=== PATIENT | female | born 1945 | race Caucasian/White ===

== ENCOUNTER → 2018-10-14 | Day surgery (SDC) | payer OTHER ==
--- NOTE | 2018-10-14 12:37 | RAD REPORT ---
EXAM DESCRIPTION: US - Breast Core BX w/US Guidance - 10/14/2018 11:45 am CLINICAL HISTORY: ICD N63.20 COMPARISON: October 09 2018 ultrasound TECHNIQUE: The risks, benefits alternatives to the procedure were explained to the patient and infor med consent obtained. Skin and subcutaneous tissues anesthetized with lidocaine. Under sonographic guidance, three 14 gauge vacuum assisted core biopsies of the mass within the outer lower left breast obtained. 2 centimeter specimens taken. Tissue given to pathology. Subsequently a localizing clip was placed into the mass. Patient experienced no immediate complication IMPRESSION: Vacuum assisted core biopsies of the left breast mass
== END ==
LOC: DS 10:29
PROVIDERS: ATTEND Internal Medicine
DX: C50.912 Malignant neoplasm of unspecified site of left female breast (principal)
CPT/HCPCS: 19083; 88305

== ENCOUNTER 2018-12-28 08:48 | Inpatient (IN) | payer OTHER ==
--- OUTSIDE RECORDS SUMMARY | 2018-12-28 08:51 | XMS REPORT ---
:1945 [facility] [address] [place] [address] Care Team Providers Name Role Phone Unavailable Unavailable Unavailable Problems This patient has no known problems. Allergies, Adverse Reactions, Alerts This patient has no known allergies or adverse reactions. Medications This patient has no known medications.
[2018-12-28] MEDS ORDERED: ONDANSETRON 4 MG/2 ML VIAL ONE ×2 (09:21→10:01)
[2018-12-28] MEDS ORDERED: MORPHINE 4 MG/ML SYR ONE ×2 (09:21→10:01)
[2018-12-28] MEDS ORDERED: NA CHLORIDE 0.9% 1,000 ML ONE (09:21)
[2018-12-28] MEDS ORDERED: FAMOTIDINE 20 MG/2 ML VIAL IV ONE (09:22)
[2018-12-28 09:36] LABS: Absolute Lymphocytes (CBC) 0.8 K/uL (0.7-4.9); Basophils % 0.3 % (0-1.3); Hematocrit 36.8 % (36.0-45.0); Lymphocytes % 4.5 % (15.3-44.8); MPV 8.1 fL (7.6-11.3); RBC Red Blood Cell Count 4.32 M/uL (3.86-4.86)
[2018-12-28] MEDS ORDERED: METRONIDAZOLE 500mg IVPB 500 MG/100 ML BAG IV ONE (09:56)
[2018-12-28] MEDS ORDERED: CIPROFLOXACIN 400mg IV 400 MG/200 ML BAG IV ONE (09:56)
[2018-12-28 09:58] LABS: ALT/SGPT 22 U/L (12-78); AST/SGOT 12 U/L (15-37); Albumin 3.2 g/dL (3.4-5.0); Alkaline Phosphatase 106 U/L (45-117); BUN Blood Urea Nitrogen 20 mg/dL (7-18); Bicarbonate 25 mmol/L (21-32); Bilirubin Direct 0.1 mg/dL (0-0.2); Bilirubin Total 0.5 mg/dL (0.2-1.0); Glucose Level 102 mg/dL (74-106); Lipase 58 U/L (73-393); Magnesium 1.8 mg/dL (1.8-2.4); NT PRO-BNP 589 pg/mL (<125); Potassium 3.3 mmol/L (3.5-5.1); Protein, Total 6.7 g/dL (6.4-8.2); Sodium Level 143 mmol/L (136-145); Troponin (Emerg Dept Use Only) < 0.02 ng/mL (0.0-0.045)
[2018-12-28] MEDS ORDERED: NS KCL 20MEQ 1,000 ML IV ONE (10:11)
[2018-12-28 10:16] LABS: Blood Morphology Comment NOT SEEN (NOT SEEN); Platelet Estimate ADEQ
[2018-12-28] MEDS ORDERED: PROMETHAZINE 25 MG/ML VIAL ONE (10:22)
--- NOTE | 2018-12-28 10:30 | RAD REPORT ---
EXAM DESCRIPTION: RAD - Chest Single View - 12/28/2018 9:39 am CLINICAL HISTORY: Abdominal pain, abdominal distention, history of breast cancer COMPARISON: None. TECHNIQUE: AP portable chest image was obtained 0935 hours . FINDINGS: No peripheral mass or consolidation. No failure or volume overload. Moderately large right paratracheal mass density is present aortic arch level. This is relatively dense and appears to cont ain extensive calcification. This would favor a benign, chronic etiology ; however, no comparison is available and the patient has a breast cancer history. Heart and vasculature are normal. No measurable pleural effusion and no pneumothorax. No acute bony abnormality seen. No acute aortic findings suspected. IMPRESSION: No acute infiltrate, failure or other acute cardiopulmonary finding. Upper right paratracheal mass density appears to be densely calcified which would favor a benign proc ess. However, given the breast cancer history, follow-up comparison with outside imaging would be rec ommended.
[2018-12-28 10:52] LABS: Urine Blood TRACE (NEG); Urine Glucose NEGATIVE (NEG); Urine Protein NEGATIVE (NEG)
--- NOTE | 2018-12-28 11:21 | RAD REPORT ---
EXAM DESCRIPTION: CT - Abdomen Pelvis W Contrast - 12/28/2018 11:06 am CLINICAL HISTORY: ABD PAIN COMPARISON: None. TECHNIQUE: Biphasic, helical CT imaging of the abdomen and pelvis was performed following 100 ml non -ionic IV contrast. Oral contrast was given. All CT scans are performed using dose optimization technique as appropriate and may include automated exposure control or mA/KV adjustment according to patient size. FINDINGS: No suspicious findings in the lung bases. The liver, spleen, and pancreas show no suspicious findings. Gallbladder is absent. Intrahepatic and extrahepatic biliary tree dilatation are present. No duct stone or mass seen. In the absence of any l ab or clinical findings of biliary obstruction this is probably normal post cholecystectomy dilatatio n. Symmetric renal function is seen with no hydronephrosis or suspicious renal mass. No pyelonephritis o r acute parenchymal process. Urinary bladder is only partially filled. No bladder stone. No adrenal a bnormalities. Small hiatal hernia is present and reflux is evident. A primary gastric wall mass or gastric wall thi ckening not suspected. No gastric outlet obstruction. Small bowel loops are not dilated. Mild left-si ded diverticulosis is present without left-sided diverticulitis. Moderate stool volume in the descend ing and sigmoid portions of the colon. Acute appendicitis is not suspected. Blackwell of the cecum, ascen ding colon and transverse colon are mildly prominent suspicious for a nonspecific colitis. No one foc al colon mass identifiable. Uterus is surgically absent. The patient has a 12 x 10 centimeter homogeneous cystic mass believed to be right ovarian in origin. No mural nodule, septation or fat component. There is a 3.3 x 3.3 centim eter round left ovarian cystic mass. No free air, free fluid or inflammatory stranding. No bulky lymphadenopathy or hernia. Disc and bony degenerative changes are present prominent in the lower lumbar spine. Vascular calcific ations are present. IMPRESSION: Mild right-sided colitis changes are present believed to be the primary acute process. Patient has a 12 x 10 centimeter homogeneous right adnexal cystic mass and and 3 centimeter left ovar hiro cystic mass both favored to be cyst adenomas. No CT characteristics to elevate probability of a m ore aggressive ovarian process. Biliary tree dilatation believed to be physiologic in a post cholecystectomy patient. Correlation is needed with any biliary obstructive clinical or laboratory findings.
--- NOTE | 2018-12-28 11:34 | ER ---
Nurse's Notes [facility] Name: Ginna Hankins Age: 73 yrs Sex: Female : 1945 Arrival Date: 12/28/2018 Time: 08:50 Bed 8 Private MD: Jimi Forrester Diagnosis: Abdominal tenderness;Other and unspecified noninfective gastroenteritis and colitis-right sided;Hypokalemia;Elevated white blood cell count;Other ovarian cysts-12x10 cm serous cyst adenoma Presentation: 12/28 09:00 Presenting complaint: Patient states: right sided abd pain all weekend, started IV iw chemo 2 weeks ago for breast cancer, was diagnosed in October, states she can't eat or drink anything because of the burning pain, denies vomiting or diarrhea. Transition of care: patient was not received from another setting of care. Onset of symptoms was December 26, 2018. Risk Assessment: Do you want to hurt yourself or someone else? Patient reports no desire to harm self or others. Initial Sepsis Screen: Does the patient meet any 2 criteria? No. Patient's initial sepsis screen is negative. Does the patient have a suspected source of infection? No. Patient's initial sepsis screen is negative. Care prior to arrival: None. 09:00 Method Of Arrival: Wheelchair iw 09:00 Acuity: STAR 3 iw Historical: - Allergies: :28 No Known Allergies; iw - Home Meds: :28 Norvasc Oral [Active]; anxiety medication [Active]; iw - PMHx: :28 Hypertension; Anxiety; Cancer, Breast; iw - PSHx: :28 None; iw - Immunization history:: Adult Immunizations. - Social history:: Smoking status: Patient uses tobacco products, denies chronic smoking, but will smoke occasionally, Smoking status: . - Ebola Screening: : Patient denies travel to an Ebola-affected area in the 21 days before illness onset. - Family history:: not pertinent. Screenin:09 Abuse screen: Denies threats or abuse. Nutritional screening: No deficits noted. tw2 Tuberculosis screening: No symptoms or risk factors identified. Fall Risk None identified. Assessment: 09:28 General: Appears uncomfortable, Behavior is crying. Pain: Complains of pain in abdomen. tw2 Neuro: Level of Consciousness is awake, alert, obeys commands, Oriented to person, place, time, situation. Cardiovascular: Heart tones S1 S2 Patient's skin is warm and dry. Respiratory: Airway is patent Respiratory effort is even, unlabored, Respiratory pattern is regular, symmetrical, Breath sounds are clear bilaterally. GI: Abdomen is round non-distended, Bowel sounds present X 4 quads. Abd is soft X 4 quads Reports lower abdominal pain, upper abdominal pain, nausea. : No signs and/or symptoms were reported regarding the genitourinary system. EENT: No signs and/or symptoms were reported regarding the EENT system. Derm: No signs and/or symptoms reported regarding the dermatologic system. Musculoskeletal: Range of motion: intact in all extremities. 10:06 Reassessment: No changes from previously documented assessment. Patient and/or family tw2 updated on plan of care and expected duration. Pain level reassessed. Patient is alert, oriented x 3, equal unlabored respirations, skin warm/dry/pink. Patient states symptoms have not improved. 10:28 Reassessment: pt vomited a small amount of yellow tinged emesis at this time, provider tw2 notified and medicated as ordered. CT notified only half bottle of contrast was consumed, provider aware as well. 11:15 Reassessment: Patient appears in no apparent distress at this time. Patient and/or tw2 family updated on plan of care and expected duration. Pain level reassessed. Patient is alert, oriented x 3, equal unlabored respirations, skin warm/dry/pink. Patient states feeling better. 12:03 Reassessment: Patient appears in no apparent distress at this time. No changes from tw2 previously documented assessment. Patient and/or family updated on plan of care and expected duration. Pain level reassessed. Patient is alert, oriented x 3, equal unlabored respirations, skin warm/dry/pink. 13:00 Reassessment: No changes from previously documented assessment. Patient and/or family tw2 updated on plan of care and expected duration. Pain level reassessed. Patient is alert, oriented x 3, equal unlabored respirations, skin warm/dry/pink. 13:48 Reassessment: No changes from previously documented assessment. Patient and/or family tw2 updated on plan of care and expected duration. Pain level reassessed. Patient is alert, oriented x 3, equal unlabored respirations, skin warm/dry/pink. Vital Signs: 09:27 BP 142 / 67; Pulse 61; Resp 18; Temp 97.8(O); Pulse Ox 100% on R/A; Weight 72.57 kg; iw Height 5 ft. 2 in. (157.48 cm); Pain 10/10; 10:06 BP 144 / 71; Pulse 68; Resp 17; Pulse Ox 100% on R/A; Pain 10/10; tw2 11:16 BP 117 / 49; Pulse 79; Resp 17; Pulse Ox 100% on R/A; Pain 7/10; tw2 12:03 BP 111 / 53; Pulse 69; Resp 17; Pulse Ox 99% on R/A; tw2 09:27 Body Mass Index 29.26 (72.57 kg, 157.48 cm) iw ED Course: 08:50 Patient arrived in ED. mr 08:50 Jimi Forrester MD is Private Physician. mr 08:51 Grazyna Melo FNP-C [facility]. kb 08:51 Darrius Moreno MD is Attending Physician. kb 09:09 Francheska Matson, BETHANIE is Primary Nurse. tw2 09:09 Arm band placed on. tw2 09:09 Bed in low position. Call light in reach. Adult w/ patient. monitoring tech on. Pulse tw2 ox on. NIBP on. 09:12 Darrius Moreno MD is Attending Physician. elidia 09:20 Inserted saline lock: 22 gauge in right antecubital area, using aseptic technique. tw2 Blood collected. 09:26 Triage completed. iw 09:36 XRAY Chest (1 view) In Process Unspecified. EDMS 10:58 EKG done, by electrical and instrument technician. reviewed by Darrius Moreno MD. sm3 11:03 CT completed. Patient tolerated procedure well. Patient moved to CT via stretcher. sw Patient moved back from CT. 11:07 CT Abd/Pelvis - PO and IV Contrast In Process Unspecified. EDMS 11:25 Suma Duffy MD is Hospitalizing Provider. elidia 12:44 Awaiting: unsuccessful attempt to call report at this time. tw2 13:48 No provider procedures requiring assistance completed. Patient admitted, IV remains in tw2 place. Administered Medications: 09:20 Drug: NS 0.9% 1000 ml Route: IV; Rate: 1 bolus; Site: right antecubital; tw2 11:00 Follow up: Response: No adverse reaction; IV Status: Completed infusion; IV Intake: tw2 1000ml 09:23 Drug: Pepcid 20 mg Route: IVP; Site: right antecubital; tw2 09:55 Follow up: Response: No adverse reaction tw2 09:25 Drug: Zofran 4 mg Route: IVP; Site: right antecubital; tw2 09:55 Follow up: Response: No adverse reaction; Nausea is decreased tw2 09:27 Drug: morphine 4 mg {Note: RASS 0.} Route: IVP; Site: right antecubital; tw2 10:05 Follow up: Response: No adverse reaction; Pain is unchanged, physician notified; RASS: tw2 Alert and Calm (0) 10:00 Drug: Zofran 4 mg Route: IVP; Site: right antecubital; tw2 10:28 Follow up: Response: No adverse reaction; Nausea unchanged tw2 10:02 Drug: morphine 4 mg {Note: RASS 0.} Route: IVP; Site: right antecubital; tw2 10:28 Follow up: Response: No adverse reaction; Pain is decreased; RASS: Alert and Calm (0) tw2 10:04 Drug: Flagyl 500 mg Volume: 100 ml; Route: IVPB; Rate: 200 ml/hr; Infused Over: 30 tw2 mins; Site: right antecubital; 10:32 Follow up: Response: No adverse reaction; IV Status: Completed infusion tw2 10:27 Drug: Phenergan 12.5 mg Route: IVP; Site: right antecubital; tw2 11:26 Follow up: Response: No adverse reaction; Nausea is decreased tw2 10:33 Drug: Cipro 400 mg Volume: 200 ml; Route: IVPB; Infused Over: 60 mins; Site: right tw2 antecubital; 11:35 Follow up: Response: No adverse reaction; IV Status: Completed infusion tw2 11:47 Drug: NS 0.9% with KCl 20 mEq/L 1000 ml Route: IV; Rate: 125 ml/hr; Site: right tw2 antecubital; 13:48 Follow up: IV Status: Infusion continued upon admission tw2 Intake: 11:00 IV: 1000ml; Total: 1000ml. tw2 Outcome: 11:34 Decision to Hospitalize by Provider. elidia 13:48 Patient left the ED. iw 13:48 Admitted to Med/surg accompanied by tech, via stretcher. tw2 13:48 Condition: stable 13:48 Instructed on the need for admit. Signatures: Dispatcher [employer] Grazyna Guzman, STEREOTYPE MOLDERFaviola GALINDO-Darrius Lopez MD MD cha Rivera, Ginna mr Chel Carlson, RN BETHANIE iw Omar, Francheska Stephenson RN RN [facility] Kelly Pozo [facility]
--- NOTE | 2018-12-28 11:35 | EDPHYS ---
Physician Documentation [facility] Name: Ginna Hankins Age: 73 yrs Sex: Female : 1945 Arrival Date: 12/28/2018 Time: 08:50 Bed 8 Private MD: Jimi Forrester ED Physician Darrius Moreno HPI: 12/28 09:21 This 73 yrs old Female presents to ER via Unassigned with complaints of elidia Abdominal Pain. 09:21 The patient presents with abdominal pain in the upper abdomen, in the lower abdomen, elidia abdominal distention. Onset: The symptoms/episode began/occurred 5 day(s) ago. The symptoms do not radiate. Modifying factors: The symptoms are alleviated by. Severity of pain: At its worst the pain was mild moderate in the emergency department the pain is unchanged. Historical: - Allergies: : No Known Allergies; iw - Home Meds: :28 Norvasc Oral [Active]; anxiety medication [Active]; iw - PMHx: :28 Hypertension; Anxiety; Cancer, Breast; iw - PSHx: 09:28 None; iw - Immunization history:: Adult Immunizations. - Social history:: Smoking status: Patient uses tobacco products, denies chronic smoking, but will smoke occasionally, Smoking status: . - Ebola Screening: : Patient denies travel to an Ebola-affected area in the 21 days before illness onset. - Family history:: not pertinent. ROS: 09:21 Constitutional: Negative for fever, chills, and weight loss, Eyes: Negative for injury, elidia pain, redness, and discharge, ENT: Negative for injury, pain, and discharge, Neck: Negative for injury, pain, and swelling, Cardiovascular: Negative for chest pain, palpitations, and edema, Respiratory: Negative for shortness of breath, cough, wheezing, and pleuritic chest pain, Back: Negative for injury and pain, : Negative for injury, bleeding, discharge, and swelling, MS/Extremity: Negative for injury and deformity, Skin: Negative for injury, rash, and discoloration, Neuro: Negative for headache, weakness, numbness, tingling, and seizure, Psych: Negative for depression, anxiety, suicide ideation, homicidal ideation, and hallucinations, Allergy/Immunology: Negative for hives, rash, and allergies, Endocrine: Negative for neck swelling, polydipsia, polyuria, polyphagia, and marked weight changes, Hematologic/Lymphatic: Negative for swollen nodes, abnormal bleeding, and unusual bruising. 09:21 Abdomen/GI: Positive for abdominal pain, nausea, of the epigastric area, right upper quadrant and left upper quadrant. Exam: 09:21 Constitutional: This is a well developed, well nourished patient who is awake, alert, elidia and in no acute distress. Head/Face: Normocephalic, atraumatic. Eyes: Pupils equal round and reactive to light, extra-ocular motions intact. Lids and lashes normal. Conjunctiva and sclera are non-icteric and not injected. Cornea within normal limits. Periorbital areas with no swelling, redness, or edema. ENT: Nares patent. No nasal discharge, no septal abnormalities noted. Tympanic membranes are normal and external auditory canals are clear. Oropharynx with no redness, swelling, or masses, exudates, or evidence of obstruction, uvula midline. Mucous membranes moist. Neck: Trachea midline, no thyromegaly or masses palpated, and no cervical lymphadenopathy. Supple, full range of motion without nuchal rigidity, or vertebral point tenderness. No Meningismus. Chest/axilla: Normal chest wall appearance and motion. Nontender with no deformity. No lesions are appreciated. Cardiovascular: Regular rate and rhythm with a normal S1 and S2. No gallops, murmurs, or rubs. Normal PMI, no JVD. No pulse deficits. Respiratory: Lungs have equal breath sounds bilaterally, clear to auscultation and percussion. No rales, rhonchi or wheezes noted. No increased work of breathing, no retractions or nasal flaring. Back: No spinal tenderness. No costovertebral tenderness. Full range of motion. Female : Normal external genitalia. Skin: Warm, dry with normal turgor. Normal color with no rashes, no lesions, and no evidence of cellulitis. MS/ Extremity: Pulses equal, no cyanosis. Neurovascular intact. Full, normal range of motion. Neuro: Awake and alert, GCS 15, oriented to person, place, time, and situation. Cranial nerves II-XII grossly intact. Motor strength 5/5 in all extremities. Sensory grossly intact. Cerebellar exam normal. Normal gait. Psych: Awake, alert, with orientation to person, place and time. Behavior, mood, and affect are within normal limits. 09:21 Abdomen/GI: Inspection: abdomen appears normal, Bowel sounds: normal, Palpation: abdomen is soft and non-tender, Liver: no appreciated palpable abnormalities, Hernia: not appreciated. Vital Signs: 09:27 BP 142 / 67; Pulse 61; Resp 18; Temp 97.8(O); Pulse Ox 100% on R/A; Weight 72.57 kg; iw Height 5 ft. 2 in. (157.48 cm); Pain 10/10; 10:06 BP 144 / 71; Pulse 68; Resp 17; Pulse Ox 100% on R/A; Pain 10/10; tw2 11:16 BP 117 / 49; Pulse 79; Resp 17; Pulse Ox 100% on R/A; Pain 7/10; tw2 12:03 BP 111 / 53; Pulse 69; Resp 17; Pulse Ox 99% on R/A; tw2 09:27 Body Mass Index 29.26 (72.57 kg, 157.48 cm) iw MDM: 09:12 Patient medically screened. [facility] 09:23 Data reviewed: vital signs, nurses notes, lab test result(s), EKG, radiologic studies, [facility] CT scan, plain films. 12/28 09:20 Order name: Basic Metabolic Panel; Complete Time: 10:08 [facility] 12/28 09:20 Order name: CBC with Diff; Complete Time: 10:45 [facility] 12/28 09:20 Order name: LFT's; Complete Time: 10:08 [facility] 12/28 09:20 Order name: Magnesium; Complete Time: 10:08 [facility] 12/28 09:20 Order name: NT PRO-BNP; Complete Time: 10:08 [facility] 12/28 09:20 Order name: PT-INR; Complete Time: 10:08 [facility] 12/28 09:20 Order name: Troponin (emerg Dept Use Only); Complete Time: 10:08 [facility] 12/28 09:20 Order name: XRAY Chest (1 view); Complete Time: 11:13 [facility] 12/28 09:20 Order name: Lipase; Complete Time: 10:08 [facility] 12/28 09:20 Order name: Urine Culture [facility] 12/28 09:20 Order name: CT Abd/Pelvis - PO and IV Contrast [facility] 12/28 10:16 Order name: Manual Differential; Complete Time: 10:45 EDMS 12/28 10:25 Order name: Urine Dipstick--Ancillary (enter results); Complete Time: 11:13 12/28 11:54 Order name: Stool Culture 12/28 09:20 Order name: EKG; Complete Time: 09:22 [facility] 12/28 09:20 Order name: Cardiac monitoring; Complete Time: 09:21 [facility] 12/28 09:20 Order name: EKG - Nurse/Tech; Complete Time: 12:45 [facility] 12/28 09:20 Order name: IV Saline Lock; Complete Time: 09:21 [facility] 12/28 09:20 Order name: Labs collected and sent; Complete Time: 09:28 [facility] 12/28 12:44 Order name: Pelvis Complete US 12/28 09:20 Order name: O2 Per Protocol; Complete Time: 09:28 [facility] 12/28 09:20 Order name: O2 Sat Monitoring; Complete Time: 09:28 [facility] Administered Medications: 09:20 Drug: NS 0.9% 1000 ml Route: IV; Rate: 1 bolus; Site: right antecubital; tw2 11:00 Follow up: Response: No adverse reaction; IV Status: Completed infusion; IV Intake: tw2 1000ml 09:23 Drug: Pepcid 20 mg Route: IVP; Site: right antecubital; tw2 09:55 Follow up: Response: No adverse reaction tw2 09:25 Drug: Zofran 4 mg Route: IVP; Site: right antecubital; tw2 09:55 Follow up: Response: No adverse reaction; Nausea is decreased tw2 09:27 Drug: morphine 4 mg {Note: RASS 0.} Route: IVP; Site: right antecubital; tw2 10:05 Follow up: Response: No adverse reaction; Pain is unchanged, physician notified; RASS: tw2 Alert and Calm (0) 10:00 Drug: Zofran 4 mg Route: IVP; Site: right antecubital; tw2 10:28 Follow up: Response: No adverse reaction; Nausea unchanged tw2 10:02 Drug: morphine 4 mg {Note: RASS 0.} Route: IVP; Site: right antecubital; tw2 10:28 Follow up: Response: No adverse reaction; Pain is decreased; RASS: Alert and Calm (0) tw2 10:04 Drug: Flagyl 500 mg Volume: 100 ml; Route: IVPB; Rate: 200 ml/hr; Infused Over: 30 tw2 mins; Site: right antecubital; 10:32 Follow up: Response: No adverse reaction; IV Status: Completed infusion tw2 10:27 Drug: Phenergan 12.5 mg Route: IVP; Site: right antecubital; tw2 11:26 Follow up: Response: No adverse reaction; Nausea is decreased tw2 10:33 Drug: Cipro 400 mg Volume: 200 ml; Route: IVPB; Infused Over: 60 mins; Site: right tw2 antecubital; 11:35 Follow up: Response: No adverse reaction; IV Status: Completed infusion tw2 11:47 Drug: NS 0.9% with KCl 20 mEq/L 1000 ml Route: IV; Rate: 125 ml/hr; Site: right tw2 antecubital; 13:48 Follow up: IV Status: Infusion continued upon admission tw2 Disposition: 12/28/18 11:34 Hospitalization ordered by Suma Duffy for Inpatient Admission. Preliminary diagnosis are Abdominal tenderness, Other and unspecified noninfective gastroenteritis and colitis - right sided, Hypokalemia, Elevated white blood cell count, Other ovarian cysts - 12x10 cm serous cyst adenoma. - Bed requested for Telemetry/MedSurg (Inpatient). - Status is Inpatient Admission. iw - Condition is Stable. - Problem is new. - Symptoms have improved. UTI on Admission? No Signatures: Dispatcher [employer] EDMS Juliane Amin Corey, MD MD cha Williams, Irene, RN RN Francheska Matson RN RN tw2 Corrections: (The following items were deleted from the chart) 12:40 11:34 Hospitalization Ordered by Suma Duffy MD for Inpatient Admission. Preliminary bd diagnosis is Abdominal tenderness; Other and unspecified noninfective gastroenteritis and colitis - right sided; Hypokalemia; Elevated white blood cell count; Other ovarian cysts - 12x10 cm serous cyst adenoma. Bed requested for Telemetry/MedSurg (Inpatient). Status is Inpatient Admission. Condition is Stable. Problem is new. Symptoms have improved. UTI on Admission? No. elidia 13:48 12:40 12/28/2018 11:34 Hospitalization Ordered by Suma Duffy MD for Inpatient iw Admission. Preliminary diagnosis is Abdominal tenderness; Other and unspecified noninfective gastroenteritis and colitis - right sided; Hypokalemia; Elevated white blood cell count; Other ovarian cysts - 12x10 cm serous cyst adenoma. Bed requested for Telemetry/MedSurg (Inpatient). Status is Inpatient Admission. Condition is Stable. Problem is new. Symptoms have improved. UTI on Admission? No. bd
[2018-12-28] MEDS ORDERED: ACETAMINOPHEN 325 MG TABLET PO PRN (11:57)
[2018-12-28] MEDS ORDERED: ONDANSETRON 4 MG/2 ML VIAL IV PRN (11:57)
[2018-12-28] MEDS ORDERED: MORPHINE 4 MG/ML SYR IV PRN (11:57)
[2018-12-28] MEDS: D5.45NS W/KCL 20MEQ 20 MEQ/1,000 ML BAG IV SCH ×2 (12:00→20:43)
[2018-12-28] MEDS: METRONIDAZOLE 500mg IVPB 500 MG/100 ML BAG IV SCH ×2 (12:00→17:04)
--- NOTE | 2018-12-28 12:41 | EKG ---
Test Date: 2018-12-28 Test Time: 10:08:50 Hub Borer: BRETT MEASUREMENT RESULTS: Intervals: Rate: 68 NH: 104 QRSD: 72 QT: 420 QTc: 446 [place]: P: NH: 104 QRS: 63 T: 48 INTERPRETIVE STATEMENTS: Sinus rhythm with short NH RSR' or QR pattern in V1 suggests right ventricular conduction delay Nonspecific T wave abnormality Abnormal ECG No previous ECG available for comparison Electronically Signed On 12-28-18 12:40:36 CDT by Marcelo Qureshi
[2018-12-28 15:51] LABS: Urine Appearance CLEAR; Urine Bilirubin NEGATIVE (NEG); Urine Blood NEGATIVE (NEG); Urine Color YELLOW; Urine Glucose NEGATIVE (NEG); Urine Microscopic Reflex NO UMIC; Urine Protein NEGATIVE (NEG); Urine Specific Gravity 1.015 (1.005-1.030); Urine pH 6.5 (5.0-7.0)
--- NOTE | 2018-12-28 17:37 | P.HP ---
Certification for Inpatient Patient admitted to: Observation With expected LOS: <2 Midnights Patient will require the following post-hospital care: None Practitioner: I am a practitioner with admitting privileges, knowledge of patient current condition, hospital course, and medical plan of care. Services: Services provided to patient in accordance with Admission requirements found in Title 42 Section 412.3 of the Code of Federal Regulations Patient History Date of Service: 12/28/18 Primary Care Provider: Dr Cormier - Oncology Reason for admission: Abdominal Tenderness History of Present Illness: This is a 73-year-old female with significant past medical history of stage IV breast cancer was started chemotherapy about 2 weeks ago who presented to the ED complaining of having severe right-sided abdominal pain that has started immediately after for chemotherapy treatment. Patient stated that she always has had abdominal pain ever since she started her chemotherapy About 4 weeks ago. Patient has had 2 sessions so far. Patient stated that she has been having some nausea however denies having any vomiting. Patient also states that she has not been able to have any bowel movement. Her bowel movement is runny at this time and her last bowel movement was this morning. Denies having any Fever or chills at this time. No other complaints to offer at this time. Patient does appear to be very anxious and teary regarding her chronic state of health and states that she no longer wishes to continue her chemotherapy after she has been treated with what's going on with her right now. Allergies No Known Allergies Allergy (Unverified 12/28/18 12:15) Home Medications: Amlodipine [Norvasc] 10 mg PO DAILY 12/28/18 Vortioxetine Hydrobromide [Brintellix] 10 mg PO DAILY 12/28/18 - Past Medical/Surgical History Has patient received pneumonia vaccine in the past: Yes Diabetic: No -: htn -: breast cancer -: cholecystectomy - Social History Smoking Status: Never smoker Alcohol use: No CD- Drugs: No Caffeine use: No Place of Residence: Home Review of Systems 10-point ROS is otherwise unremarkable Physical Examination - Vital Signs Temperature: 97.2 F Blood Pressure: 108/59 Pulse: 67 Respirations: 20 Pulse Ox (%): 98 - Physical Exam General: Alert, Mild distress HEENT: Atraumatic, PERRLA, Mucous membr. moist/pink, EOMI, Sclerae nonicteric Neck: Supple, 2+ carotid pulse no bruit, No LAD, Without JVD or thyroid abnormality Respiratory: Clear to auscultation bilaterally, Normal air movement Cardiovascular: Regular rate/rhythm, Normal S1 S2 Gastrointestinal: Hyperactive, Tenderness Musculoskeletal: No tenderness Integumentary: No rashes Neurological: Normal gait, Normal speech, Normal strength at 5/5 x4 extr, Normal tone, Normal affect Lymphatics: No axilla or inguinal lymphadenopathy - Studies Laboratory Data (last 24 hrs) 12/28/18 09:20: PT 11.8, INR 1.00 12/28/18 09:20: WBC 16.7 H, Hgb 12.5, Hct 36.8, Plt Count 320 12/28/18 09:20: Sodium 143, Potassium 3.3 L, BUN 20 H, Creatinine 0.70, Glucose 102, Magnesium 1.8, Total Bilirubin 0.5, AST 12 L, ALT 22, Alkaline Phosphatase 106, Lipase 58 L Assessment and Plan - Problems (Diagnosis) (1) Right sided colitis Current Visit: Yes Status: Acute Plan: Patient with abdominal pain and intermittent nausea. Denying diarrhea or vomiting at this time -most likely secondary to chemotherapy related colitis -abdominal CT with right-sided colitis -will start on IV antibiotics Cipro and Flagyl at this time -await stool cultures as well at this time -IV fluids along with pain management as well (2) Ovarian cyst Current Visit: Yes Status: Acute Plan: Patient with abdominal CT scan with ovarian cyst -gynecology has been consulted. Awaiting further recommendations at this time -presumed malignancy however will await for transvaginal ultrasound Qualifiers: Laterality: bilateral Qualified Code(s): N83.201 - Unspecified ovarian cyst , right side; N83.202 - Unspecified ovarian cyst, left side (3) Breast cancer Current Visit: Yes Status: Chronic Plan: Stage IV breast cancer -currently getting chemotherapy for past 4 weeks has had 2 sessions so far Qualifiers: Breast location: unspecified site of breast Estrogen receptor status: unspecified Patient sex: female Laterality: unspecified laterality Qualified Code(s): C50.919 - Malignant neoplasm of unspecified site of unspecified female breast (4) Anxiety Current Visit: Yes Status: Chronic - Plan Admit patient for further workup and treatment for right-sided colitis Discharge Plan: Home Plan to discharge in: Greater than 2 days - Advance Directives Does patient have a Living Will: No Does patient have a Durable POA for Healthcare: No - Code Status/Comfort Care Code Status Assessed: Yes Critical Care: No
--- NOTE | 2018-12-28 18:38 | RAD REPORT ---
EXAM DESCRIPTION: US - Pelvis Complete - 12/28/2018 5:06 pm CLINICAL HISTORY: Abdominal pain, abnormal CT study COMPARISON: Abdomen pelvis CT December 28 TECHNIQUE: Transabdominal pelvic sonography was performed. FINDINGS: A thin-walled anechoic large cyst is present abutting the midline and right side of the ur inary bladder. This is the correlate to the CT finding measuring 11-12 cm in size. At sonography ther e is no septation or mural nodule. No fat component. Uterus is absent. Left ovary contains a 2.6 centimeter cystic mass that is the correlate to the CT fi nding. This is either a single septated cyst or 2 smaller abutting cysts. No free fluid. IMPRESSION: Large 11-12 cm right-sided cystic mass with smaller 2.6 centimeter left ovarian cyst sen t is either a single cyst with septation or 2 abutting cysts. Ovarian origin masses are favored for both. Cystadenoma would be favored. No CT or sonographic charac teristics that would elevate probability for cystadenocarcinoma or other aggressive ovarian process.
[2018-12-28] MEDS: FAMOTIDINE 20 MG/2 ML VIAL IV SCH (20:34)
[2018-12-28] MEDS: CIPROFLOXACIN 400mg IV 400 MG/200 ML BAG IV SCH (20:35)
[2018-12-28] MEDS ORDERED: clonazePAM 1 MG TAB PO PRN (21:28)
[2018-12-28] MEDS: LORAZEPAM 1 MG TABLET PO PRN (21:50)
[2018-12-29] MEDS: METRONIDAZOLE 500mg IVPB 500 MG/100 ML BAG IV SCH ×4 (00:06→17:03)
[2018-12-29 04:22] LABS: Absolute Lymphocytes (CBC) 0.5 K/uL (0.7-4.9); Basophils % 0.2 % (0-1.3); Hematocrit 32.3 % (36.0-45.0); Lymphocytes % 9.8 % (15.3-44.8); MPV 8.5 fL (7.6-11.3); RBC Red Blood Cell Count 3.75 M/uL (3.86-4.86)
[2018-12-29 04:36] LABS: Albumin 2.9 g/dL (3.4-5.0); Bilirubin Direct 0.3 mg/dL (0-0.2); Bilirubin Total 1.1 mg/dL (0.2-1.0); Potassium 4.1 mmol/L (3.5-5.1); Protein, Total 5.9 g/dL (6.4-8.2)
[2018-12-29] MEDS: D5.45NS W/KCL 20MEQ 20 MEQ/1,000 ML BAG IV SCH ×2 (05:09→12:00)
[2018-12-29] MEDS ORDERED: LORAZEPAM 1 MG TABLET PO SCH (09:00)
[2018-12-29] MEDS: CIPROFLOXACIN 400mg IV 400 MG/200 ML BAG IV SCH ×2 (09:41→20:20)
[2018-12-29] MEDS: FAMOTIDINE 20 MG/2 ML VIAL IV SCH ×2 (09:41→20:19)
[2018-12-29] MEDS ORDERED: ACETYLCYST 6,000 MG/30 ML VIAL PO ONE (10:00)
[2018-12-29 12:19] LABS: Absolute Lymphocytes (CBC) 0.2 K/uL (0.7-4.9); Basophils % 0.5 % (0-1.3); Lymphocytes % 7.2 % (15.3-44.8); MPV 8.5 fL (7.6-11.3); RBC Red Blood Cell Count 3.92 M/uL (3.86-4.86)
[2018-12-29 12:41] LABS: Albumin 2.8 g/dL (3.4-5.0); Bilirubin Total 0.7 mg/dL (0.2-1.0); Magnesium 1.8 mg/dL (1.8-2.4); Phosphorus 2.5 mg/dL (2.5-4.9); Potassium 3.7 mmol/L (3.5-5.1); Protein, Total 6.1 g/dL (6.4-8.2)
[2018-12-29 13:15] LABS: Blood Morphology Comment NOT SEEN (NOT SEEN); Platelet Estimate ADEQ
--- NOTE | 2018-12-29 13:23 | P.PN ---
Subjective Date of Service: 12/29/18 Primary Care Provider: Dr Cormier - Oncology Chief Complaint: Abdominal Tenderness Pt seen and examined at bedside. Chart reviewed Case DW with GI and DIPLOMATIC INTERPRETER/TRANSLATOR. This AM pt is very upset has not been able to get her pain medication. She states she would like to just home. I explained to patient in details the SE of pain medication on her liver function and the need to hold them for a the meantime. Pt was also educated extensively on disease process and the treatment plan. pt understood and appeared to be doing okay after. Review of Systems 10-point ROS is otherwise unremarkable Physical Examination - Vital Signs Temperature: 98.8 F Blood Pressure: 115/61 Pulse: 77 Respirations: 18 Pulse Ox (%): 95 - Physical Exam General: Alert, In no apparent distress HEENT: Atraumatic, PERRLA, EOMI Neck: Supple, JVD not distended Respiratory: Clear to auscultation bilaterally, Normal air movement Cardiovascular: Regular rate/rhythm, Normal S1 S2 Gastrointestinal: Normal bowel sounds, Tenderness Musculoskeletal: No tenderness Integumentary: No rashes Neurological: Normal speech, Normal tone, Normal affect Lymphatics: No axilla or inguinal lymphadenopathy - Studies Medications List Reviewed: Yes Assessment And Plan - Current Problems (Diagnosis) (1) Right sided colitis Current Visit: Yes Status: Acute Plan: Patient with abdominal pain and intermittent nausea. Denying diarrhea or vomiting at this time -most likely secondary to chemotherapy related colitis -abdominal CT with right-sided colitis -On IV antibiotics Cipro and Flagyl at this time -await stool cultures as well at this time -IV fluids and hold pain management as well (2) Ovarian cyst Current Visit: Yes Status: Acute Plan: Patient with abdominal CT scan with ovarian cyst -gynecology has been consulted. appreciated recommendations at this time -Pelpsychiatric US with Ovarian Cyst. Qualifiers: Laterality: bilateral Qualified Code(s): N83.201 - Unspecified ovarian cyst , right side; N83.202 - Unspecified ovarian cyst, left side (3) Breast cancer Current Visit: Yes Status: Chronic Plan: Stage IV breast cancer -currently getting chemotherapy for past 4 weeks has had 2 sessions so far Qualifiers: Breast location: unspecified site of breast Estrogen receptor status: unspecified Patient sex: female Laterality: unspecified laterality Qualified Code(s): C50.919 - Malignant neoplasm of unspecified site of unspecified female breast (4) Anxiety Current Visit: Yes Status: Chronic (5) Transaminitis Current Visit: Yes Status: Acute Plan: Elevated LFT's most likely 2.2 to Pain medication vs chemo -Mucomyst started at this time -pain medication on Hold - Plan Pending For clinical Improvement Discharge Plan: Home Plan to discharge in: Greater than 2 days - Code Status/Comfort Care Code Status Assessed: Yes Critical Care: No
[2018-12-29] MEDS: LORAZEPAM 1 MG TABLET PO PRN (13:49)
[2018-12-29] MEDS ORDERED: LORazepam 2 MG/ML VIAL IV PRN (14:56)
--- NOTE | 2018-12-29 15:56 | RAD REPORT ---
EXAM DESCRIPTION: MRI - Cholangiogram - 12/29/2018 3:41 pm CLINICAL HISTORY: Elevated LFT's COMPARISON: Abdomen WWo Cont dated 11/30/2018; Abdomen Pelvis W Contrast dated 12/28/2018 FINDINGS: Three-dimensional MRCP was performed using maximum intensity projection reconstruction on the same work station. No intrahepatic biliary tree dilatation is seen. The common bile duct is normal caliber without evide nce of retained stone, stricture or mass. The pancreatic duct is not pathologically dilated. Cholecystectomy. Limited T2 sequences through the abdomen demonstrates no bulky adenopathy, significant free fluid or abscess. IMPRESSION: Negative MR cholangiogram status post cholecystectomy.
[2018-12-29] MEDS: ACETYLCYST 6,000 MG/30 ML VIAL PO SCH ×4 (17:27→22:00)
[2018-12-30] MEDS: METRONIDAZOLE 500mg IVPB 500 MG/100 ML BAG IV SCH ×2 (00:08→06:02)
[2018-12-30] MEDS: ACETYLCYST 6,000 MG/30 ML VIAL PO SCH ×3 (02:00→09:17)
[2018-12-30] MEDS: D5.45NS W/KCL 20MEQ 20 MEQ/1,000 ML BAG IV SCH (04:00)
[2018-12-30] MEDS ORDERED: AMLODIPINE 10 MG TAB PO SCH (09:00)
[2018-12-30] MEDS: FAMOTIDINE 20 MG/2 ML VIAL IV SCH (09:16)
[2018-12-30] MEDS: CIPROFLOXACIN 400mg IV 400 MG/200 ML BAG IV SCH (09:16)
[2018-12-30] MEDS: LORAZEPAM 1 MG TABLET PO PRN (09:19)
[2018-12-30 10:21] LABS: Absolute Lymphocytes (CBC) 0.3 K/uL (0.7-4.9); Basophils % 0.5 % (0-1.3); Hematocrit 33.9 % (36.0-45.0); MPV 8.3 fL (7.6-11.3)
[2018-12-30 10:24] LABS: Bilirubin Total 0.3 mg/dL (0.2-1.0); Potassium 3.5 mmol/L (3.5-5.1)
--- NOTE | 2018-12-30 11:27 | P.DS ---
Admission Date: 12/28/18 Discharge Date: 12/30/18 Primary Care Provider: Dr Cormier - Oncology Disposition: ROUTINE DISCHARGE Discharge Condition: FAIR Reason for Admission: Abdominal Tenderness - Problems (1) Right sided colitis Current Visit: Yes Status: Acute (2) Ovarian cyst Current Visit: Yes Status: Acute Qualifiers: Laterality: bilateral Qualified Code(s): N83.201 - Unspecified ovarian cyst , right side; N83.202 - Unspecified ovarian cyst, left side (3) Breast cancer Current Visit: Yes Status: Chronic Qualifiers: Breast location: unspecified site of breast Estrogen receptor status: unspecified Patient sex: female Laterality: unspecified laterality Qualified Code(s): C50.919 - Malignant neoplasm of unspecified site of unspecified female breast (4) Anxiety Current Visit: Yes Status: Chronic (5) Transaminitis Current Visit: Yes Status: Acute Brief History of Present Illness: This is a 73-year-old female with significant past medical history of stage IV breast cancer was started chemotherapy about 2 weeks ago who presented to the ED complaining of having severe right-sided abdominal pain that has started immediately after for chemotherapy treatment. Patient stated that she always has had abdominal pain ever since she started her chemotherapy About 4 weeks ago. Patient has had 2 sessions so far. Patient stated that she has been having some nausea however denies having any vomiting. Patient also states that she has not been able to have any bowel movement. Her bowel movement is runny at this time and her last bowel movement was this morning. Denies having any Fever or chills at this time. No other complaints to offer at this time. Patient does appear to be very anxious and teary regarding her chronic state of health and states that she no longer wishes to continue her chemotherapy after she has been treated with what's going on with her right now. Hospital Course: Overall during the hospital stay patient remained stable Patient was initially admitted to the hospital for right-sided colitis most likely secondary to chemotherapy patient received 2 weeks ago. Patient was started on Cipro and Flagyl here in the hospital. GI was consulted. Patient was initially kept NPO along with IV fluids. Was advanced diet when she started feeling better and was having no nausea and vomiting. While here in the hospital patient also had her lab work done which was consistent with elevated LFTs most likely secondary to drug insult. Patient was started on Mucomyst and had marked improvement in her symptoms. At that time patient was asked to discontinue taking her depression medication that she recently started and was asked to contact her primary care provider to CPK pacer on different medication. Patient had MRCP done here which was negative for any acute abnormality. Of note, the patient was initially admitted to the hospital she had an abdominal CT which were concerning for ovarian cyst. Pelvic ultrasound was done here in the hospital which was also consistent with ovarian cyst. If GI was consulted here in the hospital who recommended patient can have outpatient follow up and can't have the Young cyst monitored by her wet finisher versus oncologist. Patient has a follow up appointment with her oncologist along with GI and wet finisher who will be following up with her chemotherapy regimen along with CT findings. Patient and family were made aware of the treatment plan. Once patient was doing well overall with no complaints to offer she was discharged home under stable condition. Vital Signs/Physical Exam: Temp Pulse Resp BP Pulse Ox 97.6 F 70 16 98/46 L 98 12/30/18 08:00 12/30/18 09:00 12/30/18 08:00 12/30/18 09:00 12/30/18 08:00 General: Alert, In no apparent distress HEENT: Atraumatic, PERRLA, EOMI Neck: Supple, JVD not distended Respiratory: Clear to auscultation bilaterally, Normal air movement Cardiovascular: Regular rate/rhythm, Normal S1 S2 Gastrointestinal: Normal bowel sounds, No tenderness Musculoskeletal: No tenderness Integumentary: No rashes Neurological: Normal speech, Normal tone, Normal affect Lymphatics: No axilla or inguinal lymphadenopathy Laboratory Data at Discharge: WBC 2.3 K/uL (4.3-10.9) L D 12/30/18 09:56 Hgb 11.3 g/dL (12.0-15.0) L 12/30/18 09:56 Hct 33.9 % (36.0-45.0) L 12/30/18 09:56 Plt Count 251 K/uL (152-406) 12/30/18 09:56 PT 11.8 SECONDS (9.5-12.5) 12/28/18 09:20 INR 1.00 12/28/18 09:20 Sodium 145 mmol/L (136-145) 12/30/18 09:56 Potassium 3.5 mmol/L (3.5-5.1) 12/30/18 09:56 BUN 10 mg/dL (7-18) 12/30/18 09:56 Creatinine 0.67 mg/dL (0.55-1.3) 12/30/18 09:56 Glucose 176 mg/dL (74-106) H 12/30/18 09:56 Phosphorus 2.5 mg/dL (2.5-4.9) 12/29/18 12:00 Magnesium 1.8 mg/dL (1.8-2.4) 12/29/18 12:00 Total Bilirubin 0.3 mg/dL (0.2-1.0) 12/30/18 09:56 AST 41 U/L (15-37) H 12/30/18 09:56 ALT 189 U/L (12-78) H D 12/30/18 09:56 Alkaline Phosphatase 149 U/L (45-117) H 12/30/18 09:56 Lipase 74 U/L (73-393) 12/29/18 03:34 Home Medications: Amlodipine [Norvasc*] 10 mg PO DAILY 12/28/18 LORazepam [Ativan*] 1 mg PO BID PRN 12/28/18 clonazePAM [Klonopin*] 1 mg PO BEDTIME PRN PRN 12/28/18 Acetylcyst [Mucomyst 20%*] 25.5 ml PO Q4H #14 vial 12/30/18 Ciprofloxacin/Ciprofloxa HCl [Cipro 500 MG Xr Tablet] 500 mg PO BID #28 tbmp.24hr 12/30/18 metroNIDAZOLE [Flagyl] 500 mg PO Q6H #56 tablet 12/30/18 New Medications: Acetylcyst [Mucomyst 20%*] 25.5 ml PO Q4H #14 vial Ciprofloxacin/Ciprofloxa HCl [Cipro 500 MG Xr Tablet] 500 mg PO BID #28 tbmp.24hr metroNIDAZOLE [Flagyl] 500 mg PO Q6H #56 tablet Diet: [place] Activity: Ad chad Followup: Deb Doran MD [PROVISIONAL ASSOCIATE ACTIVE] - 1-2 Weeks (Gyneocologist - Call to schedule an appointment) Kendrick Heaton MD [ACTIVE - CAN ADMIT] - 1-2 Weeks (GI- call to schedule an appointment)
[2018-12-30 12:53] LABS: Toxic Granulation 1+
[2018-12-30 12:54] LABS: Blood Morphology Comment NOT SEEN (NOT SEEN); Dohle Bodies PRESENT; Platelet Estimate ADEQ; Platelets, Giant FEW
== END 2018-12-30 11:35 | disposition home or self-care (01) | DRG 395 ==
LOC: ER 08:48 → ERHOLD 11:54 → 4TH 13:32
PROVIDERS: ADMIT Family Medicine; ATTEND Family Medicine
DX: K52.1 Toxic gastroenteritis and colitis (principal); N83.202 Unspecified ovarian cyst, left side; N83.201 Unspecified ovarian cyst, right side; C50.919 Malignant neoplasm of unspecified site of unspecified female breast; F41.9 Anxiety disorder, unspecified; R74.0 Nonspecific elevation of levels of transaminase and lactic acid dehydrogenase [LDH]; T45.1X5A Adverse effect of antineoplastic and immunosuppressive drugs, initial encounter; Y92.239 Unspecified place in hospital as the place of occurrence of the external cause; I10 Essential (primary) hypertension
CPT/HCPCS: 36415; 71045; 74177; 74181; 76856; 80048; 80053; 80076; 81003; 83690; 83735; 83880; 84100; 84484; 85025; 85610; 87086; 87088; 87493; 93005; 96361; 96365; 96367; 96375; 99285; J0744; J2405; J2550; J7030; Q9967

== ENCOUNTER 2019-01-03 11:59 | Emergency (ER) | payer OTHER ==
--- OUTSIDE RECORDS SUMMARY | 2019-01-03 12:00 | XMS REPORT ---
:1945 [facility] Address [address] [place] [address] Care Team Providers Name Role Phone Unavailable Unavailable Unavailable Problems This patient has no known problems. Allergies, Adverse Reactions, Alerts This patient has no known allergies or adverse reactions. Medications This patient has no known medications.
[2019-01-03 12:44] LABS: Absolute Lymphocytes (CBC) 1.2 K/uL (0.7-4.9); Basophils % 0.2 % (0-1.3); Hematocrit 33.1 % (36.0-45.0); Lymphocytes % 8.1 % (15.3-44.8); MPV 8.2 fL (7.6-11.3); RBC Red Blood Cell Count 3.87 M/uL (3.86-4.86)
[2019-01-03 13:00] LABS: ALT/SGPT 65 U/L (12-78); AST/SGOT 21 U/L (15-37); Albumin 3.2 g/dL (3.4-5.0); Alkaline Phosphatase 110 U/L (45-117); BUN Blood Urea Nitrogen 5 mg/dL (7-18); Bicarbonate 28 mmol/L (21-32); Bilirubin Direct < 0.1 mg/dL (0-0.2); Bilirubin Total 0.2 mg/dL (0.2-1.0); Glucose Level 91 mg/dL (74-106); Lipase 45 U/L (73-393); Potassium 3.3 mmol/L (3.5-5.1); Protein, Total 6.5 g/dL (6.4-8.2); Sodium Level 146 mmol/L (136-145)
[2019-01-03] MEDS ORDERED: NA CHLORIDE 0.9% 1,000 ML ONE (13:13)
--- NOTE | 2019-01-03 13:26 | EDPHYS ---
Physician Documentation [facility] Name: Ginna Hankins Age: 73 yrs Sex: Female : 1945 Arrival Date: 01/03/2019 Time: 12:01 Bed 19 Private MD: ED Physician Darrius Moreno HPI: 01/03 13:36 This 73 yrs old Female presents to ER via Ambulatory with complaints of snw Abdominal Pain, Diarrhea, Weakness. 13:36 The patient presents with abdominal pain in the epigastric area. Onset: The snw symptoms/episode began/occurred gradually, and became persistent. The symptoms do not radiate. Associated signs and symptoms: Pertinent positives: nausea, loose stools. The symptoms are described as crampy. Modifying factors: the symptoms are aggravated by food. Severity of pain: At its worst the pain was moderate. just inpatient CHI with dx colitis. The patient has been recently been admitted at [facility], was discharged earlier this week. Historical: - Allergies: 12:07 No Known Allergies; la1 - PMHx: 12:07 Anxiety; Cancer, Breast; Hypertension; la1 - Immunization history:: Adult Immunizations up to date. - Social history:: Smoking status: Patient/guardian denies using tobacco. - Ebola Screening: : No symptoms or risks identified at this time. ROS: 13:33 Constitutional: Negative for fever, chills, and weight loss, Eyes: Negative for injury, snw pain, redness, and discharge, ENT: Negative for injury, pain, and discharge, Neck: Negative for injury, pain, and swelling, Cardiovascular: Negative for chest pain, palpitations, and edema, Respiratory: Negative for shortness of breath, cough, wheezing, and pleuritic chest pain, Back: Negative for injury and pain, : Negative for injury, bleeding, discharge, and swelling, MS/Extremity: Negative for injury and deformity, Skin: Negative for injury, rash, and discoloration, Neuro: Negative for headache, weakness, numbness, tingling, and seizure, Psych: Negative for depression, anxiety, suicide ideation, homicidal ideation, and hallucinations. 13:33 Abdomen/GI: Negative for abdominal pain, 20min post eating. Exam: 13:32 Constitutional: This is a well developed, well nourished patient who is awake, alert, snw and in no acute distress. Head/Face: Normocephalic, atraumatic. Eyes: Pupils equal round and reactive to light, extra-ocular motions intact. Lids and lashes normal. Conjunctiva and sclera are non-icteric and not injected. Cornea within normal limits. Periorbital areas with no swelling, redness, or edema. ENT: Nares patent. No nasal discharge, no septal abnormalities noted. Tympanic membranes are normal and external auditory canals are clear. Oropharynx with no redness, swelling, or masses, exudates, or evidence of obstruction, uvula midline. Mucous membranes moist. Neck: Trachea midline, no thyromegaly or masses palpated, and no cervical lymphadenopathy. Supple, full range of motion without nuchal rigidity, or vertebral point tenderness. No Meningismus. Chest/axilla: Normal chest wall appearance and motion. Nontender with no deformity. No lesions are appreciated. Cardiovascular: Regular rate and rhythm with a normal S1 and S2. No gallops, murmurs, or rubs. Normal PMI, no JVD. No pulse deficits. Respiratory: Lungs have equal breath sounds bilaterally, clear to auscultation and percussion. No rales, rhonchi or wheezes noted. No increased work of breathing, no retractions or nasal flaring. Abdomen/GI: Soft, non-tender, with normal bowel sounds. No distension or tympany. No guarding or rebound. No evidence of tenderness throughout. Back: No spinal tenderness. No costovertebral tenderness. Full range of motion. Skin: Warm, dry with normal turgor. Normal color with no rashes, no lesions, and no evidence of cellulitis. MS/ Extremity: Pulses equal, no cyanosis. Neurovascular intact. Full, normal range of motion. Neuro: Awake and alert, GCS 15, oriented to person, place, time, and situation. Cranial nerves II-XII grossly intact. Motor strength 5/5 in all extremities. Sensory grossly intact. Cerebellar exam normal. Normal gait. Psych: Awake, alert, with orientation to person, place and time. Behavior, mood, and affect are within normal limits. Vital Signs: 12:07 BP 130 / 71; Pulse 80; Resp 16; Temp 98.3; Pulse Ox 96% on R/A; Weight 72.57 kg; Height la1 5 ft. 1 in. (154.94 cm); 13:00 BP 115 / 76; Pulse 78; Resp 18 S; Pulse Ox 99% on R/A; aa5 14:06 BP 119 / 75; Pulse 75; Resp 16 S; Pulse Ox 98% on R/A; aa5 15:08 BP 148 / 67; Pulse 74; Resp 18 S; Temp 98.0(TE); Pulse Ox 99% on R/A; aa5 12:07 Body Mass Index 30.23 (72.57 kg, 154.94 cm) la1 MDM: 12:13 Patient medically screened. snw 13:34 Data reviewed: vital signs, nurses notes. Data interpreted: Pulse oximetry: on room air snw is 96 %. Interpretation: normal. Counseling: I had a detailed discussion with the patient and/or guardian regarding: the historical points, exam findings, and any diagnostic results supporting the discharge/admit diagnosis, the presence of at least one elevated blood pressure reading (>120/80) during this emergency department visit, lab results, the need for outpatient follow up, to return to the emergency department if symptoms worsen or persist or if there are any questions or concerns that arise at home. Response to treatment: the patient's symptoms have mildly improved after treatment. Special discussion: Based on the patient's Hx, exam, and Dx evaluation, there is no indication for emergent surgery or inpatient Tx. It is understood by the patient/guardian that if the Sx's persist or worsen they need to return immediately for re-evaluation. Based on the history and exam findings, there is no indication for further emergent testing or inpatient evaluation. I discussed with the patient/guardian the need to see the sheet rock finisher/oncologist for further evaluation of the symptoms. I discussed with the patient/guardian the need to see the primary care provider for further evaluation of the symptoms. 01/03 12:20 Order name: Basic Metabolic Panel; Complete Time: 13:04 snw 01/03 12:20 Order name: CBC with Diff; Complete Time: 13:31 snw 01/03 12:20 Order name: Hepatic Function; Complete Time: 13:04 snw 01/03 12:20 Order name: Lipase; Complete Time: 13:04 snw 01/03 12:20 Order name: Urine Culture snw 01/03 12:20 Order name: Urine Microscopic Only; Complete Time: 14:00 [facility] 01/03 12:20 Order name: IV Saline Lock; Complete Time: 13:51 [facility] 01/03 12:20 Order name: Labs collected and sent; Complete Time: 13:51 [facility] 01/03 12:20 Order name: Urine Dipstick-Ancillary (obtain specimen); Complete Time: 13:28 [facility] 01/03 13:25 Order name: Urine Dipstick--Ancillary (enter results); Complete Time: 14:00 01/03 13:29 Order name: Manual Differential; Complete Time: 13:31 EDMS Administered Medications: 12:30 Drug: NS 0.9% 1000 ml Route: IV; Rate: 125 ml/hr; Site: right forearm; aa5 15:08 Follow up: IV Status: Order to discontinue infusion aa5 14:06 Drug: morphine 5 mg Route: IM; Site: left deltoid; aa5 15:08 Follow up: Response: No adverse reaction aa5 15:08 Drug: CarafATE 1 grams Route: PO; aa5 15:12 Follow up: Response: Medication administered at discharge. aa5 Disposition: 01/04 09:21 Co-signature as Attending Physician, Darrius Moreno MD I agree with the assessment and elidia plan of care. Disposition: 01/03/19 13:25 Discharged to Home. Impression: Abdominal tenderness, Person with feared health complaint in whom no diagnosis is made. - Condition is Stable. - Discharge Instructions: Abdominal Pain, Adult, Fatigue, Rehydration, Adult. - Prescriptions for Bentyl 20 mg Oral Tablet - take 1 tablet by ORAL route every 6 hours As needed; 20 tablet. - Medication Reconciliation Form, Thank You Letter, Antibiotic Education, Prescription Opioid Use form. - Follow up: Private Physician; When: 1 - 2 days; Reason: Recheck today's complaints, Continuance of care, Re-evaluation by your physician. Follow up: Emergency Department; When: As needed; Reason: Worsening of condition. - Notes: May stop [employer]. Go have some [place]. Signatures: Dispatcher [employer] EDDarrius Kat MD MD cha Therrien, Shelly, CLOTH COLORER-C CLOTH COLORER-Csnw Monserrat Mcgregor, RN RN aa5 Johnson Sofia RN RN la1 Corrections: (The following items were deleted from the chart) 01/03 15:16 13:25 01/03/2019 13:25 Discharged to Home. Impression: Abdominal tenderness; Person aa5 with feared health complaint in whom no diagnosis is made. Condition is Stable. Forms are Medication Reconciliation Form, Thank You Letter, Antibiotic Education, Prescription Opioid Use. Follow up: Private Physician; When: 1 - 2 days; Reason: Recheck today's complaints, Continuance of care, Re-evaluation by your physician. Follow up: Emergency Department; When: As needed; Reason: Worsening of condition. snw
--- NOTE | 2019-01-03 13:26 | ER ---
Nurse's Notes [facility] Name: Ginna Hankins Age: 73 yrs Sex: Female : 1945 Arrival Date: 01/03/2019 Time: 12:01 Bed 19 Private MD: Diagnosis: Abdominal tenderness;Person with feared health complaint in whom no diagnosis is made Presentation: 01/03 12:06 Presenting complaint: Patient states: D/C from floor on Friday for colitis, today la1 just not feeling well and having diarrhea. Last chemo tx was 2 weeks ago. Transition of care: patient was not received from another setting of care. Onset of symptoms was January 03, 2019. Risk Assessment: Do you want to hurt yourself or someone else? Patient reports no desire to harm self or others. Initial Sepsis Screen: Does the patient meet any 2 criteria? No. Patient's initial sepsis screen is negative. Does the patient have a suspected source of infection? No. Patient's initial sepsis screen is negative. Care prior to arrival: None. 12:06 Method Of Arrival: Ambulatory la1 12:06 Acuity: STAR 3 la1 Historical: - Allergies: 12:07 No Known Allergies; la1 - PMHx: 12:07 Anxiety; Cancer, Breast; Hypertension; la1 - Immunization history:: Adult Immunizations up to date. - Social history:: Smoking status: Patient/guardian denies using tobacco. - Ebola Screening: : No symptoms or risks identified at this time. Screenin:35 Abuse screen: Denies threats or abuse. Nutritional screening: No deficits noted. aa5 Tuberculosis screening: No symptoms or risk factors identified. Fall Risk Fall in past 12 months (25 points). IV access (20 points). Total Lowe Fall Scale indicates High Risk Score (45 or more points). Fall prevention measures have been instituted. Side Rails Up X 2 Placed Close to Nursing Station. Assessment: 12:20 Reassessment: Pt reports she is currently taking Cipro and Flagyl for Colitis . aa5 12:20 General: Appears comfortable, Behavior is calm, cooperative. Pain: Complains of pain in aa5 left lower quadrant Pain does not radiate. Pain currently is 0 out of 10 on a pain scale. Quality of pain is described as sharp, tender, Pain began "a few days ago" Is intermittent. Neuro: Level of Consciousness is awake, alert, obeys commands, Oriented to person, place, time, situation, Vehicle Cost Engineer are equal bilaterally Moves all extremities. Speech is normal, Facial symmetry appears normal, Pupils are PERRLA, Reports generalized weakness . Cardiovascular: Heart tones S1 S2 present Rhythm is regular. Respiratory: Airway is patent Respiratory effort is even, unlabored, Respiratory pattern is regular, symmetrical, Breath sounds are clear bilaterally. GI: Abdomen is round Bowel sounds present X 4 quads. Abd is soft X 4 quads Abdomen is tender to palpation in left lower quadrant Patient currently denies nausea, vomiting, Reports "loose stools". : No signs and/or symptoms were reported regarding the genitourinary system. EENT: No signs and/or symptoms were reported regarding the EENT system. Derm: Skin is pink, warm \\T\\ dry. Musculoskeletal: Range of motion: intact in all extremities. 13:00 Reassessment: Pt resting in bed with eyes closed, respirations even and unlabored, skin aa5 is pink/warm/dry. Pt's daughter remains at bedside. . 14:06 Reassessment: Patient is alert, oriented x 3, equal unlabored respirations, skin aa5 warm/dry/pink. 14:06 Pain: Pain currently is 4 out of 10 on a pain scale. aa5 15:08 Reassessment: Patient is alert, oriented x 3, equal unlabored respirations, skin aa5 warm/dry/pink. Pt states "my stomach just feels like indigestion and uncomfortable" . Vital Signs: 12:07 BP 130 / 71; Pulse 80; Resp 16; Temp 98.3; Pulse Ox 96% on R/A; Weight 72.57 kg; Height la1 5 ft. 1 in. (154.94 cm); 13:00 BP 115 / 76; Pulse 78; Resp 18 S; Pulse Ox 99% on R/A; aa5 14:06 BP 119 / 75; Pulse 75; Resp 16 S; Pulse Ox 98% on R/A; aa5 15:08 BP 148 / 67; Pulse 74; Resp 18 S; Temp 98.0(TE); Pulse Ox 99% on R/A; aa5 12:07 Body Mass Index 30.23 (72.57 kg, 154.94 cm) la1 ED Course: 12:01 Patient arrived in ED. mr 12:07 Triage completed. la1 12:08 Arm band placed on left wrist. la1 12:13 Carlota Hewitt FNP-C [facility]. snw 12:13 Darrius Moreno MD is Attending Physician. snw 12:19 Monserrat Mcgregor, RN is Primary Nurse. aa5 12:20 Patient has correct armband on for positive identification. Bed in low position. Call aa5 light in reach. Side rails up X2. Adult w/ patient. 12:30 Initial lab(s) drawn, by me, sent to lab. Inserted saline lock: 22 gauge in right aa5 forearm, using aseptic technique. Blood collected. 13:28 Urine collected: clean catch specimen, cloudy. dh3 15:10 IV discontinued, intact, bleeding controlled, No redness/swelling at site. Pressure aa5 dressing applied. 15:10 No provider procedures requiring assistance completed. aa5 Administered Medications: 12:30 Drug: NS 0.9% 1000 ml Route: IV; Rate: 125 ml/hr; Site: right forearm; aa5 15:08 Follow up: IV Status: Order to discontinue infusion aa5 14:06 Drug: morphine 5 mg Route: IM; Site: left deltoid; aa5 15:08 Follow up: Response: No adverse reaction aa5 15:08 Drug: CarafATE 1 grams Route: PO; aa5 15:12 Follow up: Response: Medication administered at discharge. aa5 Outcome: 13:25 Discharge ordered by . snw 15:12 Discharged to home ambulatory, with family. aa5 15:12 Condition: stable 15:12 Discharge instructions given to patient, Instructed on discharge instructions, follow up and referral plans. medication usage, Demonstrated understanding of instructions, follow-up care, medications, Prescriptions given X 1, Pt instructed by FIBRE COMPOSITE TECHNICIAN to continue antibiotics prescribed previously. 15:16 Patient left the ED. aa5 Signatures: Carlota Hewitt FNP-C HAND II CUTTER-Syed Ginna Martinez Monserrat Mcgregor, RN RN aa5 Johnson Sofia RN RN la1 Lucy Freire 3 Corrections: (The following items were deleted from the chart) 12:08 12:06 Presenting complaint: Patient states: D/C from floor on Friday for colitis, la1 today just not feeling well and having diarrhea la1
[2019-01-03 13:27] LABS: Blood Morphology Comment NOT SEEN (NOT SEEN); Platelet Estimate ADEQ; Toxic Granulation 1+
[2019-01-03] MEDS ORDERED: MORPHINE 4 MG/ML SYR ONE (13:55)
[2019-01-03] MEDS ORDERED: MORPHINE 2 MG/ML SYR ONE (13:55)
[2019-01-03 13:58] LABS: Urine Bacteria <20 /HPF (<20); Urine Culture Reflex Order NOT NEEDED
[2019-01-03 13:58] LABS: Urine Blood 1+ (NEG); Urine Glucose NEGATIVE (NEG); Urine Protein NEGATIVE (NEG); Urine pH 5.5 (5.0-7.0)
[2019-01-03] MEDS ORDERED: SUCRALFATE 1 GM TABLET ONE (15:04)
== END 2019-01-03 15:16 | disposition home or self-care (01) ==
LOC: ER 11:59
DX: R10.9 Unspecified abdominal pain (principal); Z71.1 Person with feared health complaint in whom no diagnosis is made
CPT/HCPCS: 96361; 87088; 85025; 87086; 80048; 36415; 80076; 83690; 96360; 96372; 99284; J2270; J7030; 81003; 81015

== ENCOUNTER 2019-03-27 11:46 | Emergency (ER) | payer OTHER ==
--- OUTSIDE RECORDS SUMMARY | 2019-03-27 11:48 | XMS REPORT ---
:1945 [facility] Address [address] [place] [address] Care Team Providers Name Role Phone Unavailable Unavailable Unavailable Problems This patient has no known problems. Allergies, Adverse Reactions, Alerts This patient has no known allergies or adverse reactions. Medications This patient has no known medications.
[2019-03-27] MEDS ORDERED: ONDANSETRON 4 MG/2 ML VIAL ONE (12:40)
[2019-03-27] MEDS ORDERED: FAMOTIDINE 20 MG/2 ML VIAL IV ONE (12:40)
[2019-03-27] MEDS ORDERED: NA CHLORIDE 0.9% 1,000 ML ONE (12:40)
[2019-03-27] MEDS ORDERED: LORazepam 2 MG/ML VIAL ONE (12:49)
[2019-03-27 12:53] LABS: Absolute Lymphocytes (CBC) 0.1 K/uL (0.7-4.9); Basophils % 0.1 % (0-1.3); Hematocrit 38.5 % (36.0-45.0); Lymphocytes % 1.5 % (15.3-44.8); MPV 8.7 fL (7.6-11.3); RBC Red Blood Cell Count 4.35 M/uL (3.86-4.86)
[2019-03-27 13:08] LABS: Potassium 3.7 mmol/L (3.5-5.1)
[2019-03-27 13:36] LABS: Anisocytosis 1+; Blood Morphology Comment NOTED (NOT SEEN); Platelet Estimate ADEQ; Urine White Blood Cell Casts OK
--- NOTE | 2019-03-27 14:07 | ER ---
Nurse's Notes [facility] Name: Ginna Hankins Age: 73 yrs Sex: Female : 1945 Arrival Date: 03/27/2019 Time: 11:48 Bed 2 Private MD: Jimi Forrestre Diagnosis: Nausea;Vomiting Presentation: 03/27 12:07 Presenting complaint: Patient states: N/V since 0600 today, unable to keep anything ph down, also c/o RLQ pain which pt reports hx of, currently receiving chemo for breast cancer, last tx on Fri, denies fever or chills. Transition of care: patient was not received from another setting of care. Onset of symptoms was March 27, 2019. Risk Assessment: Do you want to hurt yourself or someone else? Patient reports no desire to harm self or others. Initial Sepsis Screen: Does the patient meet any 2 criteria? No. Patient's initial sepsis screen is negative. Does the patient have a suspected source of infection? No. Patient's initial sepsis screen is negative. Care prior to arrival: None. 12:07 Method Of Arrival: Wheelchair ph 12:07 Acuity: STAR 3 ph Historical: - Allergies: 12:11 No Known Allergies; ph - Home Meds: 12:11 anxiety medication [Active]; Norvasc Oral [Active]; Tramadol Oral [Active]; Zofran Oral ph [Active]; - PMHx: 12:11 Anxiety; Cancer, Breast; Hypertension; chemo; ph - Immunization history:: Adult Immunizations unknown. - Social history:: Smoking status: Patient/guardian denies using tobacco. - Ebola Screening: : No symptoms or risks identified at this time. Screenin:11 Abuse screen: Denies threats or abuse. Denies injuries from another. Nutritional ph screening: No deficits noted. Tuberculosis screening: No symptoms or risk factors identified. Fall Risk None identified. Assessment: 12:58 General: Appears in no apparent distress. uncomfortable, Behavior is cooperative, ph appropriate for age, anxious, Denies fever, chills. Pain: Complains of pain in right lower quadrant. Neuro: Level of Consciousness is awake, alert, obeys commands, Oriented to person, place, time, situation. Cardiovascular: Capillary refill < 3 seconds in bilateral fingers Patient's skin is warm and dry. Respiratory: Airway is patent Respiratory effort is even, unlabored, Respiratory pattern is regular, symmetrical. GI: Abdomen is non-distended, Reports lower abdominal pain, nausea, vomiting. Derm: Skin is intact, is fragile, is thin, Skin is pale. Musculoskeletal: Circulation, motion, and sensation intact. Range of motion: intact in all extremities. 13:45 Reassessment: Patient appears in no apparent distress at this time. pt given PO sprite sg and saltine crackers as requested and ordered by . 14:00 Reassessment: Patient appears in no apparent distress at this time. Patient and/or sg family updated on plan of care and expected duration. Pain level reassessed. Patient is alert, oriented x 3, equal unlabored respirations, skin warm/dry/pink. pt requesting to go home, reports tolerating PO sprite and crackers at this time. 14:05 Reassessment: Patient appears in no apparent distress at this time. Patient and/or ph family updated on plan of care and expected duration. Pain level reassessed. Pt ate crackers and drank PO fluids, tolerated well, requesting to be d/c home Patient states feeling better. Patient states symptoms have improved. Vital Signs: 12:09 BP 132 / 72; Pulse 107; Resp 18; Temp 98.2; Pulse Ox 96% on R/A; Weight 72.57 kg; ph Height 5 ft. 2 in. (157.48 cm); 12:59 BP 123 / 70; Pulse 107; Resp 18; Pulse Ox 96% on R/A; ph 13:05 BP 107 / 59; Pulse 97; Resp 18; Temp 97.9(TE); Pulse Ox 95% on R/A; mh5 12:09 Body Mass Index 29.26 (72.57 kg, 157.48 cm) ph ED Course: 11:48 Patient arrived in ED. rg4 11:48 Jimi Forrester MD is Private Physician. rg4 12:07 Susan Simpson, BETHANIE is Primary Nurse. ph 12:09 Triage completed. ph 12:11 Nas Orozco MD is Attending Physician. kdr 12:11 Arm band placed on Patient placed in an exam room, on a stretcher, on pulse oximetry. ph 12:11 Patient has correct armband on for positive identification. Bed in low position. Call ph light in reach. Side rails up X 1. Pulse ox on. NIBP on. Door closed. Noise minimized. Warm blanket given. 12:48 Initial lab(s) drawn, by me, sent to lab. Inserted saline lock: 20 gauge in left sg antecubital area, using aseptic technique. Blood collected. 14:05 Jimi Forrester MD is Referral Physician. kdr 14:20 No provider procedures requiring assistance completed. IV discontinued, intact, ph bleeding controlled, No redness/swelling at site. Pressure dressing applied. Administered Medications: 12:45 Drug: Pepcid 20 mg Route: IVP; Site: left antecubital; ph 13:15 Follow up: Response: No adverse reaction ph 12:45 Drug: NS 0.9% 1000 ml Route: IV; Rate: 1 bolus; Site: left antecubital; ph 13:30 Follow up: Response: No adverse reaction; IV Status: Completed infusion; IV Intake: ph 1000ml 12:46 Drug: Zofran 4 mg Route: IVP; Site: left antecubital; ph 13:15 Follow up: Response: No adverse reaction; Nausea is decreased; Vomiting decreased ph 12:57 Drug: Ativan 0.5 mg Route: IVP; Site: left antecubital; ph 13:30 Follow up: Response: No adverse reaction; Anxiety decreased ph Intake: 13:30 IV: 1000ml; Total: 1000ml. ph Outcome: 14:06 Discharge ordered by . kdr 14:28 Patient left the ED. ph 14:28 Discharged to home via wheelchair, with family. ph 14:28 Condition: improved 14:28 Discharge instructions given to patient, family, Instructed on discharge instructions, follow up and referral plans. medication usage, Demonstrated understanding of instructions, follow-up care, medications, Prescriptions given X 2. Signatures: Naveen Vasquez RN RN Nas Orozco MD MD kdr Hall, Patricia, RN RN Michael, Mireya [facility] Anabela Medina [facility]
--- NOTE | 2019-03-27 14:07 | EDPHYS ---
Physician Documentation [facility] Name: Ginna Hankins Age: 73 yrs Sex: Female : 1945 Arrival Date: 03/27/2019 Time: 11:48 Bed 2 Private MD: Jimi Forrester ED Physician Nas Orozco HPI: 03/27 16:34 This 73 yrs old Female presents to ER via Wheelchair with complaints of kdr Nausea. 16:34 The patient presents to the emergency department with nausea, that is mild, that is kdr moderate, vomiting, that is intermittent. Onset: The symptoms/episode began/occurred acutely, suddenly, just prior to arrival, this morning. Possible causes: unknown. The symptoms are aggravated by food , The symptoms are alleviated by nothing. Associated signs and symptoms: Pertinent positives: nausea, vomiting, Pertinent negatives: abdominal pain, anorexia, belching, constipation, diarrhea, dysuria, fever, GI bleeding, hematuria, vaginal discharge. Severity of symptoms: At their worst the symptoms were moderate severe incapacitating just prior to arrival, in the emergency department the symptoms have improved mildly. The patient has experienced similar episodes in the past, a few times. The patient has been recently seen by a physician: the patient's primary care provider. Historical: - Allergies: 12:11 No Known Allergies; ph - Home Meds: 12:11 anxiety medication [Active]; Norvasc Oral [Active]; Tramadol Oral [Active]; Zofran Oral ph [Active]; - PMHx: 12:11 Anxiety; Cancer, Breast; Hypertension; chemo; ph - Immunization history:: Adult Immunizations unknown. - Social history:: Smoking status: Patient/guardian denies using tobacco. - Ebola Screening: : No symptoms or risks identified at this time. ROS: 16:34 Constitutional: Negative for fever, chills, and weight loss, Eyes: Negative for injury, kdr pain, redness, and discharge, Neck: Negative for injury, pain, and swelling, Cardiovascular: Negative for chest pain, palpitations, and edema, Respiratory: Negative for shortness of breath, cough, wheezing, and pleuritic chest pain, Back: Negative for injury and pain, : Negative for injury, bleeding, discharge, and swelling, MS/Extremity: Negative for injury and deformity, Skin: Negative for injury, rash, and discoloration, Neuro: Negative for headache, weakness, numbness, tingling, and seizure activity. Psych: Negative for depression, anxiety, suicide ideation, homicidal ideation, and hallucinations, Allergy/Immunology: Negative for hives, rash, and allergies, Endocrine: Negative for neck swelling, polydipsia, polyuria, polyphagia, and marked weight changes, Hematologic/Lymphatic: Negative for swollen nodes, abnormal bleeding, and unusual bruising. 16:34 Abdomen/GI: Positive for nausea and vomiting, Negative for abdominal pain, constipation, abdominal cramps, abdominal distension, anorexia, dysphagia, hematemesis, black/tarry stool, rectal pain, rectal bleeding, bowel incontinence, flatulence. Exam: 16:34 Constitutional: This is a well developed, well nourished patient who is awake, alert, kdr and in no acute distress. Head/Face: Normocephalic, atraumatic. Eyes: Pupils equal round and reactive to light, extra-ocular motions intact. Lids and lashes normal. Conjunctiva and sclera are non-icteric and not injected. Cornea within normal limits. Periorbital areas with no swelling, redness, or edema. Neck: Trachea midline, no thyromegaly or masses palpated, and no cervical lymphadenopathy. Supple, full range of motion without nuchal rigidity, or vertebral point tenderness. No Meningismus. Chest/axilla: Normal chest wall appearance and motion. Nontender with no deformity. No lesions are appreciated. Cardiovascular: Regular rate and rhythm with a normal S1 and S2. No gallops, murmurs, or rubs. Normal PMI, no JVD. No pulse deficits. Respiratory: Lungs have equal breath sounds bilaterally, clear to auscultation and percussion. No rales, rhonchi or wheezes noted. No increased work of breathing, no retractions or nasal flaring. Abdomen/GI: Soft, non-tender, with normal bowel sounds. No distension or tympany. No guarding or rebound. No evidence of tenderness throughout. Back: No spinal tenderness. No costovertebral tenderness. Full range of motion. Skin: Warm, dry with normal turgor. Normal color with no rashes, no lesions, and no evidence of cellulitis. MS/ Extremity: Pulses equal, no cyanosis. Neurovascular intact. Full, normal range of motion. Neuro: Awake and alert, GCS 15, oriented to person, place, time, and situation. Cranial nerves II-XII grossly intact. Motor strength 5/5 in all extremities. Sensory grossly intact. Cerebellar exam normal. Normal gait. Psych: Awake, alert, with orientation to person, place and time. Behavior, mood, and affect are within normal limits. Vital Signs: 12:09 BP 132 / 72; Pulse 107; Resp 18; Temp 98.2; Pulse Ox 96% on R/A; Weight 72.57 kg; ph Height 5 ft. 2 in. (157.48 cm); 12:59 BP 123 / 70; Pulse 107; Resp 18; Pulse Ox 96% on R/A; ph 13:05 BP 107 / 59; Pulse 97; Resp 18; Temp 97.9(TE); Pulse Ox 95% on R/A; mh5 12:09 Body Mass Index 29.26 (72.57 kg, 157.48 cm) ph MDM: 14:06 Patient medically screened. kdr 16:34 Data reviewed: vital signs, nurses notes, lab test result(s), radiologic studies. kdr Counseling: I had a detailed discussion with the patient and/or guardian regarding: the historical points, exam findings, and any diagnostic results supporting the discharge/admit diagnosis, lab results, radiology results, the need for outpatient follow up. 03/27 12:29 Order name: CBC with Diff; Complete Time: 13:40 kdr 03/27 12:29 Order name: Chem 7; Complete Time: 13:24 kdr 03/27 13:36 Order name: CBC Smear Scan; Complete Time: 13:40 EDMS 03/27 13:40 Order name: PO challenge; Complete Time: 14:44 kdr Administered Medications: 12:45 Drug: Pepcid 20 mg Route: IVP; Site: left antecubital; ph 13:15 Follow up: Response: No adverse reaction ph 12:45 Drug: NS 0.9% 1000 ml Route: IV; Rate: 1 bolus; Site: left antecubital; ph 13:30 Follow up: Response: No adverse reaction; IV Status: Completed infusion; IV Intake: ph 1000ml 12:46 Drug: Zofran 4 mg Route: IVP; Site: left antecubital; ph 13:15 Follow up: Response: No adverse reaction; Nausea is decreased; Vomiting decreased ph 12:57 Drug: Ativan 0.5 mg Route: IVP; Site: left antecubital; ph 13:30 Follow up: Response: No adverse reaction; Anxiety decreased ph Disposition: 03/27/19 14:06 Discharged to Home. Impression: Nausea, Vomiting. - Condition is Fair. - Discharge Instructions: Nausea and Vomiting, Adult, [id number]. - Prescriptions for Zofran ODT 8 mg Oral tablet,disintegrating - place 1 tablet by TRANSLINGUAL route every 8 hours As needed; 12 tablet. Pepcid 20 mg Oral Tablet - take 1 tablet by ORAL route once daily; 20 tablet. - Medication Reconciliation Form, Thank You Letter form. - Follow up: Jimi Forrester MD; When: 2 - 3 days; Reason: If symptoms return, Further diagnostic work-up, Recheck today's complaints, Continuance of care, Re-evaluation by your physician. - Problem is new. - Symptoms have improved. Signatures: Dispatcher [employer] EDMS Nas Orozco MD MD kdr Susan Simpson RN RN ph Corrections: (The following items were deleted from the chart) 14:15 14:06 03/27/2019 14:06 Discharged to Home. Impression: Nausea. Condition is Fair. Forms kdr are Medication Reconciliation Form, Thank You Letter, Antibiotic Education, Prescription Opioid Use. Follow up: Jimi Forrester; When: 2 - 3 days; Reason: If symptoms return, Further diagnostic work-up, Recheck today's complaints, Continuance of care, Re-evaluation by your physician. Problem is new. Symptoms have improved. kdr 14:28 14:15 03/27/2019 14:06 Discharged to Home. Impression: Nausea; Vomiting. Condition is ph Fair. Forms are Medication Reconciliation Form, Thank You Letter, Antibiotic Education, Prescription Opioid Use. Follow up: Jimi Forrester; When: 2 - 3 days; Reason: If symptoms return, Further diagnostic work-up, Recheck today's complaints, Continuance of care, Re-evaluation by your physician. Problem is new. Symptoms have improved. kdr
[2019-03-27 14:42] VITALS: BP 107/59; TEMP 97.9; O2SAT 95
== END 2019-03-27 14:28 | disposition home or self-care (01) ==
LOC: ER 11:46
DX: R11.2 Nausea with vomiting, unspecified (principal); I10 Essential (primary) hypertension; F41.9 Anxiety disorder, unspecified; Z85.3 Personal history of malignant neoplasm of breast
CPT/HCPCS: 96361; 85025; 80048; 36415; 96375; 96374; 99284; J7030; J2405

== ENCOUNTER 2019-04-23 08:11 | Day surgery (SDC) | payer OTHER ==
[2019-04-21 11:18] LABS: Absolute Lymphocytes (CBC) 0.9 K/uL (0.7-4.9); Basophils % 0.9 % (0-1.3); Hematocrit 36.8 % (36.0-45.0); Lymphocytes % 13.2 % (15.3-44.8); MPV 8.5 fL (7.6-11.3); RBC Red Blood Cell Count 4.14 M/uL (3.86-4.86)
[2019-04-21 11:39] LABS: Potassium 3.9 mmol/L (3.5-5.1)
--- OUTSIDE RECORDS SUMMARY | 2019-04-23 08:14 | XMS REPORT ---
:1945 [facility] Address [address] [place] [address] [address] [place] [address] Care Team Providers Name Role Phone Unavailable Unavailable Unavailable Problems This patient has no known problems. Allergies, Adverse Reactions, Alerts This patient has no known allergies or adverse reactions. Medications This patient has no known medications.
[2019-04-23] MEDS ORDERED: CEFAZOLIN/SWI 1gm 1 GM/10 ML SYR ONE (08:52)
[2019-04-23] MEDS ORDERED: Ringers Lactate 1,000 ML IV ONE ×2 (08:52→11:43)
[2019-04-23] MEDS ORDERED: MIDAZOLAM HCL 2 MG/2 ML INJ ONE (09:44)
[2019-04-23] MEDS ORDERED: LIDOCAINE 2% MPF 5 ML VIAL ONE (09:44)
[2019-04-23] MEDS ORDERED: propofoL 200 MG/20 ML VIAL IV ONE (09:44)
[2019-04-23] MEDS ORDERED: FENTANYL CITR 100 MCG/2 ML ONE ×2 (09:44→10:55)
[2019-04-23] MEDS ORDERED: ROCURONIUM 50 MG/5 ML VIAL IV ONE (09:45)
[2019-04-23] MEDS ORDERED: ONDANSETRON 4 MG/2 ML VIAL ONE (10:30)
[2019-04-23] MEDS ORDERED: EPHEDRINE SULF 50 MG/ML VIAL ONE (10:33)
[2019-04-23] MEDS ORDERED: KETOROLAC 30 MG/ML INJ ONE (11:30)
[2019-04-23] MEDS ORDERED: dexAMETHasone 10 MG/ML VIAL ONE (11:30)
[2019-04-23] MEDS ORDERED: HYDROCODONE/APAP 7.5/325 MG TAB ONE (13:25)
[2019-04-23 16:19] VITALS: BP 133/59; TEMP 98.6; O2SAT 94
--- NOTE | 2019-04-23 22:51 | OP ---
Date of Procedure: 04/23/2019 Surgeon: Regis Kat MD Liquefaction And Regasification Helper: TYSON Hernandez Postoperative Diagnosis: Left breast cancer. Postoperative Diagnosis: Left breast cancer. Procedure: Left modified radical mastectomy. Estimated Blood Loss: Minimal. Specimen: Left breast margins free, axillary dissection. Findings: As above. Anesthesia: General. Complications: None. Drains: CROW #10, flat, X2. Disposition: The patient tolerated the procedure in stable condition and taken to Recovery in good g eneral condition. Description Of Procedure: Patient was brought to the OR and placed in supine position. General anes thesia begun. Patient was prepped and draped in the usual sterile fashion. Then, an ellipse of skin including the puckered skin that was present where the tumor was, approximately 20 x 10 cm, made on the left chest wall with the nipple-areolar complex in the middle. Subcutaneous tissue divided. Fla ps created superior to the clavicle, inferiorly to the insertion of the rectus abdominis muscle, late rally to the border of the latissimus dorsi muscle, and medially to the edge of the sternal border. Then, all breast tissue over the pectoralis fascia was removed, sent to Pathology. Margins were chec ked and all margins were free. Then, axillary dissection was done through the same wound. Axillary vein was identified. Thoracodorsal neurovascular bundle and long thoracic neurovascular bundle were identified. Chema's nodes were sampled. Clips were used. Cautery was used, 0 silk was used as nee ded, and a good sampling of the lymph nodes was performed. Then, both wounds were irrigated. Efflue nt was clear. Bleeding controlled with cautery. A Kameron Pugh drain, #10, flat, place x2, 1 in th e axilla and 1 under the flap, and then 2-0 chromic and 3-0 chromic were used to approximate the subc utaneous tissue and close the skin. 3-0 nylon used to secure the 2 CROW drains to the chest wall, and then sterile dressing was applied. The patient was awakened and taken to Recovery in good general co ndition. Discharge Note: The patient will go to Day Surgery, then home when stable. Disposition: Home. Condition: Stable. Discharge Instructions: Resume home medications and diet. Activity as tolerated. No heavy lifting. Keep dressing clean and dry. Sponge bathe only. Record CROW q.12. Bring record to office. Teach claire herron. Incentive spirometry as ordered. Tylenol #3 one tablet p.o. q.4 p.r.n. pain; Keflex 500 mg p .o. q.6. /MODL Voice ID: [id number] Report ID: [id number]
== END 2019-04-23 15:04 | disposition home or self-care (01) ==
LOC: OR 08:11
PROVIDERS: ATTEND Surgery
PROC: 0HTU0ZZ Resection of Left Breast, Open Approach (ICD-10-PCS; principal; 2019-04-23 10:00)
DX: C50.912 Malignant neoplasm of unspecified site of left female breast (principal); Z17.0 Estrogen receptor positive status [ER+]
CPT/HCPCS: 19307; 85025; 80048; 36415; 88307; J2704; J2250; J3010 ×2; J1100; J0690; J7120 ×2; J2405